=== PATIENT | female | born 1980 | race Caucasian/White ===

== ENCOUNTER → 2018-01-29 | Outpatient (CLI) | payer OTHER ==
[~2018-01-29] MED LIST: ALBU90OI INH; CEPH500 PO; CYPR4 PO; DESOX.05TG TOP; FAMO20 PO; GUAI600T33 PO; HYDACE5 PO; NITR100CA PO; Norco 5-325 Ta1 EACH PO; PRED20 PO; PROCODE120 PO; Prednisone20 MG PO; SPACE CHAMBER1 EACH MC; Veetids 500500 MG PO
[2018-01-31 11:58] LABS: HPV Genotype 16 Not Detected (NOTDET); HPV Genotype 18 Not Detected (NOTDET)
[2018-02-06 09:13] LABS: HPV High Risk Other Not Detected (NOTDET)
== END | disposition home or self-care (01) ==
LOC: LAB 16:05
PROVIDERS: Obstetrics & Gynecology
DX: Z01.419 Encounter for gynecological examination (general) (routine) without abnormal findings (principal)
CPT/HCPCS: 87624; G0123

== ENCOUNTER 2021-07-16 10:24 | Emergency (ER) | payer SELFPAY ==
[~2021-07-16] VITALS: Ht 170.2 cm; Wt 99.8 kg
[~2021-07-16 10:24] MED LIST changes: +CEFD300 PO; +ONDA4ODT MM; +Roxicodone5 MG PO
[2021-07-16] MEDS ORDERED: DEXA6 PO (10:48)
[2021-07-16] MEDS ORDERED: ALBU90OI INH (10:48)
[2021-07-16] MEDS ORDERED: ONDA4ODT MM (11:14)
== END 2021-07-16 13:40 | disposition home or self-care (01) ==
LOC: ER 10:24
DX: U07.1 COVID-19 (principal); F17.200 Nicotine dependence, unspecified, uncomplicated
CPT/HCPCS: 96374; 99282-25; A9270; J2405; M0243; Q0243

== ENCOUNTER 2022-11-30 18:19 | Emergency (ER) | payer SELFPAY ==
[~2022-11-30] VITALS: Ht 170.2 cm; Wt 99.8 kg
[~2022-11-30 18:19] MED LIST changes: +DEXA6 PO
[2022-11-30] MEDS ORDERED: AMOCLA875 PO (19:12)
== END 2022-11-30 19:16 | disposition home or self-care (01) ==
LOC: ER 18:19
DX: K04.7 Periapical abscess without sinus (principal); F17.200 Nicotine dependence, unspecified, uncomplicated; Z79.899 Other long term (current) drug therapy
CPT/HCPCS: A9270

== ENCOUNTER 2025-03-16 10:15 | Emergency (ER) | payer OTHER ==
[~2025-03-16] VITALS: Ht 170.2 cm; Wt 99.8 kg
[~2025-03-16 10:15] MED LIST changes: +AMOCLA875 PO
[2025-03-16 11:14] LABS: BASOPHILS ABSOLUTE AUTO 0.14 K/mm3 (0.00-0.23); BASOPHILS PERCENT AUTO 1 % (0-2); EOSINOPHILS ABSOLUTE AUTO 0.45 K/mm3 (0.00-0.68); EOSINOPHILS PERCENT AUTO 4 % (0-6); Hematocrit 33.4 % (33.0-51.0); Hemoglobin 9.1 g/dL (11.5-16.0); IMMATURE GRAN ABSOLUTE AUTO 0.07 K/mm3 (0.00-0.10); IMMATURE GRAN PERCENT AUTO 1 % (0-1); LYMPHOCYTES ABSOLUTE AUTO 2.21 K/mm3 (0.84-5.20); LYMPHOCYTES PERCENT AUTO 19 % (21-46); MONOCYTES ABSOLUTE AUTO 1.02 K/mm3 (0.16-1.47); MONOCYTES PERCENT AUTO 9 % (4-13); Mean Corpuscular HGB 19.2 pg (26.0-34.0); Mean Corpuscular HGB Conc 27.2 g/dL (31.5-36.5); Mean Corpuscular Volume 71 fL (80-100); Mean Platelet Volume 8.9 fL (9.1-12.4); NEUTROPHILS ABSOLUTE AUTO 7.84 K/mm3 (1.96-9.15); NEUTROPHILS PERCENT AUTO 67 % (41-73); Platelet Count 663 K/mm3 (150-400); RDW Coefficient Variation 18.8 % (11.7-14.2); RDW Standard Deviation 46.6 fL (35.1-46.3); Red Blood Cell Count 4.74 M/mm3 (3.80-5.20); White Blood Cell Count 11.73 K/mm3 (4.00-11.30)
[2025-03-16 11:58] LABS: Albumin, Blood 3.4 g/dL (3.4-5.0); Albumin/Globulin Ratio 0.8 (0.8-1.8); Bilirubin, Total 0.3 mg/dL (0.1-1.0); Bun/Creatinine Ratio 22.7 (12.0-20.0); Calcium, Blood 8.9 mg/dL (8.5-10.1); Creatinine, Blood 0.57 mg/dL (0.40-1.00); Globulin, Blood 4.2 g/dL (2.2-4.0); Potassium, Blood 3.8 mmol/L (3.5-5.5); Total Protein, Blood 7.6 g/dL (6.4-8.2)
[2025-03-16 12:25] LABS: Influenza A, PCR NEGATIVE (NEGATIVE); Influenza B, PCR NEGATIVE (NEGATIVE); Resp Syncytial Virus, PCR NEGATIVE (NEGATIVE); SARS-Cov-2 (COVID-19) PCR, MMC NEGATIVE (NEGATIVE)
[2025-03-16] MEDS ORDERED: NS 1,000 ML IV SCH (15:20)
[2025-03-16] MEDS ORDERED: Ipratropium Bromide INH 0.02% 0.5 mg/2.5ML Vial INH SCH (15:20)
[2025-03-16] MEDS ORDERED: Acetaminophen 325 MG TABLET PO ONE (15:20)
[2025-03-16] MEDS ORDERED: Albuterol 2.5 MG/3 ML VIAL INH SCH (15:20)
[2025-03-16 16:15] VITALS: BP 173/117
[2025-03-16] MEDS ORDERED: Benzonatate 100 MG Cap PO ONE (17:50)
[2025-03-16] MEDS ORDERED: BENZ100A PO (18:16)
[2025-03-16] MEDS ORDERED: ALBU90OI INH (18:16)
== END 2025-03-16 18:27 | disposition home or self-care (01) ==
LOC: ER 10:15
PROVIDERS: Student in an Organized Health Care Education/Training Program
DX: J06.9 Acute upper respiratory infection, unspecified (principal); R06.2 Wheezing; F17.200 Nicotine dependence, unspecified, uncomplicated; Z11.52 Encounter for screening for COVID-19; Z79.899 Other long term (current) drug therapy
CPT/HCPCS: 0241U; 71046; 80053; 85025; 93005; 93010; 94644; 94664; 99285-25; A9270; J7030